=== PATIENT | female | born 1995 ===

== ENCOUNTER 2025-01-30 04:06 | Outpatient (CLI) | payer OTHER, SELFPAY ==
[2025-01-30 10:04] LABS: Abs Immature Grans 0.03 10^3/uL (0.0-0.06); HCT 34.4 % (36.0-46.0); HGB 12.1 g/dL (11.2-15.7); Immature Grans % 0.4 %; MCH 31.3 pg (27.0-33.0); MCHC 35.2 % (32.0-36.0); MCV 89 fL (80-95); MPV 10.3 fL (8.0-11.0); Platelet Count 257 10^3/uL (130-400); RBC 3.87 10^6/uL (3.93-5.22); RDW 12.1 % (11.7-14.6); RDW-SD 39.8 fL; WBC 7.13 10^3/uL (4.4-10.8)
[2025-01-30 18:57] LABS: HIV-1/2 Ag & Ab Screen Negative (Negative)
[2025-01-30 19:16] LABS: Hepatitis C Ab w Rflx HCV PCR Negative (Negative)
[2025-01-31 12:57] LABS: Rubella IgG Ab (UVM) Positive (See Note)
[2025-02-02 12:45] LABS: Syphilis IgG w/Reflex Nonreactive (Nonreactive)
== END 2025-01-30 04:07 | disposition home or self-care (01) ==
PROVIDERS: Visit Provider Advanced Practice Midwife
DX: Z34.91 Encounter for supervision of normal pregnancy, unspecified, first trimester (principal)
CPT/HCPCS: 36415; 86787; 86803; 86850; 86900; 86901; 87340; 87389; 85025; 86762; 86780

== ENCOUNTER 2025-01-30 09:44 | Outpatient (REF) | payer OTHER, SELFPAY ==
[2025-01-31 12:15] LABS: Chlamydia Result Negative (Negative); GC Result Negative (Negative)
== END 2025-01-30 09:45 | disposition home or self-care (01) ==
LOC: LBN 09:44
PROVIDERS: Visit Provider Advanced Practice Midwife
DX: Z34.91 Encounter for supervision of normal pregnancy, unspecified, first trimester (principal)
CPT/HCPCS: 87491; 87591; 87086

== ENCOUNTER 2025-02-20 15:42 | Outpatient (REF) | payer OTHER, SELFPAY | END 2025-02-20 15:43 | disposition home or self-care (01) | LOC: LBN 15:42 | PROVIDERS: Visit Provider Advanced Practice Midwife | DX: Z34.91 Encounter for supervision of normal pregnancy, unspecified, first trimester (principal) | CPT/HCPCS: 87480; 87510; 87660 ==